=== PATIENT | male | born 1970 | race Caucasian/White ===

== ENCOUNTER → 2017-11-02 13:40 | Outpatient (CLI) | payer SELFPAY ==
--- NOTE | 2017-11-02 | DI.RAD.S_ITS ---
PROCEDURE: XR RIBS RT 2V INDICATIONS: RIGHT RIB PAIN TECHNIQUE: 2 views of the right ribs were acquired. COMPARISON: None. FINDINGS: Surgical changes and devices: None. Bones and chest wall: No fractures or dislocations. No suspicious bony lesions. Overlying soft tissues appear unremarkable. Lungs and pleura: The visualized lung appears clear. No pleural effusions or pneumothorax are visible. IMPRESSION: No displaced right rib fractures. Dictated by: Carlyle Thornton RRA Interpreted: Mindi Crum MD on 11/02/2017 at 14:27 Approved by: Mindi Crum MD, PhD on 11/02/2017 at 15:52
== END ==
PROVIDERS: Family Provider Family Medicine; PCP Family Medicine; Visit Provider Family Medicine
DX: R07.81 Pleurodynia (principal)
CPT/HCPCS: 71100